=== PATIENT | female | born 1970 | race Caucasian/White ===

== ENCOUNTER 2019-07-31 19:29 | Emergency (ER) | payer BC, OTHER ==
[2019-07-31] MEDS ORDERED: Ketorolac 30 MG/ML SDV IVPUSH ONE (19:55)
[2019-07-31] MEDS ORDERED: Sodium Chloride 0.9% 10 ML Syringe FLUSH PRN (19:55)
[2019-07-31] MEDS ORDERED: Ondansetron 4 MG/2 ML SDV IVPUSH ONE (19:55)
[2019-07-31] MEDS ORDERED: Morphine 2 MG/ML Syringe IVPUSH ONE (19:55)
[2019-07-31] MEDS ORDERED: Sodium Chloride 0.9% 1,000 ML IV ONE (19:55)
[2019-07-31] MEDS ORDERED: Sodium Chloride 0.9% 2.5 ML Syringe FLUSH PRN (19:55)
--- NOTE | 2019-07-31 19:57 | EDM.PDOC ---
ED HPI GENERAL MEDICAL PROBLEM - General Chief Complaint: Flank Pain Stated Complaint: ABDOMINAL PAIN/BLADDER PAIN Time Seen by Provider: 07/31/19 19:50 - History of Present Illness INITIAL COMMENTS - FREE TEXT/NARRATIVE: HISTORY AND PHYSICAL: History of present illness: The patient is a 49-year-old female with a history of 1 kidney stone in the past that she passed spontaneously while she was living in [place] and has not followed up with a urologist and presents with onset of dysuria frequency and urgency of urination without hematuria followed by right flank pain which is radiating to her right lower abdomen. The patient says she had a normal day today without any systemic issues and these symptoms suddenly started about an hour or 2 ago. She is had nausea and vomiting and she cannot take anything for pain at home. She says that this feels very similar to her prior kidney stone. The patient denies as her partner has a vasectomy and she has no other abdominal history. The patient says the pain is deep and uncomfortable and is radiating. Review of systems: As per history of present illness and below otherwise all systems reviewed and negative. Past medical history: As per history of present illness and as reviewed below otherwise noncontributory. Surgical history: As per history of present illness and as reviewed below otherwise noncontributory. Social history: No reported history of drug or alcohol abuse. Family history: As per history of present illness and as reviewed below otherwise noncontributory. Physical exam: Well-developed well-nourished overweight female who is nontoxic but looks uncomfortable in the room. Eitel signs are noted by me HEENT: Atraumatic, normocephalic, pupils reactive, negative for conjunctival pallor or scleral icterus, mucous membranes moist, throat clear, neck supple, nontender, trachea midline. Lungs: Clear to auscultation, breath sounds equal bilaterally, chest nontender. Heart: S1S2, regular, negative for clicks, rubs, or JVD. Abdomen: Soft, nondistended, nontender. Negative for masses or hepatosplenomegaly. Negative for costovertebral tenderness. I cannot specifically reproduce the pain on palpation of her abdomen or pelvis. Pelvis: Stable nontender. Genitourinary: Deferred. Rectal: Deferred. Extremities: Atraumatic, negative for cords or calf pain. Neurovascular unremarkable. Neuro: Awake, alert, oriented. Cranial nerves II through XII unremarkable. Cerebellum unremarkable. Motor and sensory unremarkable throughout. Exam nonfocal. Diagnostics: UA with reflex CBC CMP CT scan of the abdomen and pelvis urine culture Therapeutics: IV fluids Toradol Zofran morphine flomax urine strainers Dilaudid SHe is feeling improved and says the pain does come and go and she is aware of all of her testing results. I will give her prescriptions for home and expedited follow-up with Dr. Bach the patient was also made aware of her incidental gallstones Impression: Right ureterolithiasis Definitive disposition and diagnosis as appropriate pending reevaluation and review of above. R Flank Pain Score (Numeric/FACES): 10 - Related Data Allergies Allergy/AdvReac Type Severity Reaction Status Date / Time No Known Allergies Allergy Verified 07/31/19 19:42 Home Meds: Home Meds . [No Known Home Meds] 07/31/19 [History] Past Medical History Genitourinary History: Reports: Renal Calculus - Infectious Disease History Infectious Disease History: Reports: Chicken Pox - Past Surgical History GI Surgical History: Reports: Appendectomy Social & Family History - Family History Family Medical History: Noncontributory - Tobacco Use Smoking Status *Q: Current Every Day Smoker Years of Tobacco use: 20 Packs/Tins Daily: 1 Second Hand Smoke Exposure: No - Caffeine Use Caffeine Use: Reports: None - Recreational Drug Use Recreational Drug Use: No ED ROS GENERAL - Review of Systems Review Of Systems: Comprehensive ROS is negative, except as noted in HPI. ED EXAM, GENERAL - Physical Exam Exam: See Below (See dictation) Course - Vital Signs Last Recorded V/S: Last Vital Signs Temp 35.3 C 07/31/19 19:43 Pulse 88 07/31/19 19:43 Resp 16 07/31/19 19:43 BP 137/88 07/31/19 19:43 Pulse Ox 97 07/31/19 19:43 - Orders/Labs/Meds Orders: Active Orders 24 hr Category Date Time Status CULTURE URINE [RM] Stat Lab 07/31/19 21:25 Ordered Sodium Chloride 0.9% [Saline Flush] Med 07/31/19 19:55 Active 10 ml FLUSH ASDIRECTED PRN Sodium Chloride 0.9% [Saline Flush] Med 07/31/19 19:55 Active 2.5 ml FLUSH ASDIRECTED PRN Saline Lock Insert [OM.PC] Stat Oth 07/31/19 19:54 Ordered Medication Orders Sodium Chloride (Saline Flush) 10 ml FLUSH ASDIRECTED PRN PRN Reason: Keep Vein Open Sodium Chloride (Saline Flush) 2.5 ml FLUSH ASDIRECTED PRN PRN Reason: Keep Vein Open Labs: Laboratory Tests 07/31/19 07/31/19 07/31/19 Range/Units 19:48 19:48 20:47 WBC 13.00 H (4.0-11.0) K/uL RBC 4.44 (4.30-5.90) M/uL Hgb 13.5 (12.0-16.0) g/dL Hct 40.1 (36.0-46.0) % MCV 90.3 (80.0-98.0) fL MCH 30.4 (27.0-32.0) pg MCHC 33.7 (31.0-37.0) g/dL RDW Std Deviation 42.1 (28.0-62.0) fl RDW Coeff of Kayla 13 (11.0-15.0) % Plt Count 431 H (150-400) K/uL MPV 8.40 (7.40-12.00) fL Neut % (Auto) 55.2 (48.0-80.0) % Lymph % (Auto) 30.8 (16.0-40.0) % Lander % (Auto) 7.8 (0.0-15.0) % Eos % (Auto) 5.7 (0.0-7.0) % Baso % (Auto) 0.5 (0.0-1.5) % Neut # (Auto) 7.2 H (1.4-5.7) K/uL Lymph # (Auto) 4.0 H (0.6-2.4) K/uL Lander # (Auto) 1.0 H (0.0-0.8) K/uL Eos # (Auto) 0.7 (0.0-0.7) K/uL Baso # (Auto) 0.1 (0.0-0.1) K/uL Nucleated RBC % 0.0 /100WBC Nucleated RBCs # 0 K/uL Sodium 142 (136-145) mmol/L Potassium 3.6 (3.5-5.1) mmol/L Chloride 105 (98-107) mmol/L Carbon Dioxide 29.8 (21.0-32.0) mmol/L BUN 29 H (7.0-18.0) mg/dL Creatinine 1.2 H (0.6-1.0) mg/dL Est Cr Clr Drug Dosing 59.92 mL/min Estimated GFR (MDRD) 47.9 ml/min Glucose 110 H (74-106) mg/dL Calcium 9.2 (8.5-10.1) mg/dL Total Bilirubin 0.1 L (0.2-1.0) mg/dL AST 17 (15-37) IU/L ALT 40 (14-63) IU/L Alkaline Phosphatase 112 (46-116) U/L Total Protein 7.7 (6.4-8.2) g/dL Albumin 3.9 (3.4-5.0) g/dL Globulin 3.8 (2.6-4.0) g/dL Albumin/Globulin Ratio 1.0 (0.9-1.6) Urine Color YELLOW Urine Appearance SLT CLOUDY Urine pH 5.5 (5.0-8.0) Ur Specific [place] >= 1.030 (1.001-1.035) Urine Protein 30 H (NEGATIVE) mg/dL Urine Glucose (UA) NEGATIVE (NEGATIVE) mg/dL Urine Ketones NEGATIVE (NEGATIVE) mg/dL Urine Occult Blood LARGE H (NEGATIVE) Urine Nitrite NEGATIVE (NEGATIVE) Urine Bilirubin SMALL H (NEGATIVE) Urine Ictotest NEGATIVE Urine Urobilinogen 0.2 (<2.0) EU/dL Ur Leukocyte Esterase NEGATIVE (NEGATIVE) Urine RBC 50-60 (0-2/HPF) Urine WBC 0-4 (0-5/HPF) Ur Epithelial Cells MODERATE (NONE-FEW) Urine Bacteria 1+ H (NEGATIVE) Urinalysis Comment Meds: Medications Generic Name Dose Route Start Last Admin Trade Name Freq PRN Reason Stop Dose Admin Sodium Chloride 10 ml 07/31/19 19:55 Saline Flush FLUSH ASDIRECTED PRN Keep Vein Open Sodium Chloride 2.5 ml 07/31/19 19:55 Saline Flush FLUSH ASDIRECTED PRN Keep Vein Open Discontinued Medications Generic Name Dose Route Start Last Admin Trade Name Freq PRN Reason Stop Dose Admin Hydromorphone HCl 1 mg 07/31/19 21:29 Dilaudid IVPUSH 07/31/19 21:30 ONETIME ONE Sodium Chloride 1,000 mls @ 999 mls/hr 07/31/19 19:55 07/31/19 20:00 Normal Saline IV 07/31/19 20:55 999 mls/hr STAT ONE Administration Ketorolac Tromethamine 30 mg 07/31/19 19:55 07/31/19 20:00 Toradol IVPUSH 07/31/19 19:56 30 mg ONETIME ONE Administration Morphine Sulfate 4 mg 07/31/19 19:55 07/31/19 20:00 Morphine IVPUSH 07/31/19 19:56 4 mg ONETIME ONE Administration Ondansetron HCl 4 mg 07/31/19 19:55 07/31/19 20:00 Zofran IVPUSH 07/31/19 19:56 4 mg ONETIME ONE Administration Tamsulosin HCl 0.4 mg 07/31/19 21:26 Flomax PO 07/31/19 21:27 ONETIME ONE Departure - Departure Time of Disposition: 21:32 Disposition: Home, Self-Care 01 Condition: Good Clinical Impression: Ureterolithiasis - Discharge Information Referrals: PCP,None [Primary Care Provider] - Forms: ED Department Discharge Additional Instructions: The following information is given to patients seen in the emergency department who are being discharged to home. This information is to outline your options for follow-up care. We provide all patients seen in our emergency department with a follow-up referral. The need for follow-up, as well as the timing and circumstances, are variable depending upon the specifics of your emergency department visit. If you don't have a primary care physician on staff, we will provide you with a referral. We always advise you to contact your personal physician following an emergency department visit to inform them of the circumstance of the visit and for follow-up with them and/or the need for any referrals to a consulting specialist. The emergency department will also refer you to a specialist when appropriate. This referral assures that you have the opportunity for followup care with a specialist. All of these measure are taken in an effort to provide you with optimal care, which includes your followup. Under all circumstances we always encourage you to contact your private physician who remains a resource for coordinating your care. When calling for followup care, please make the office aware that this follow-up is from your recent emergency room visit. If for any reason you are refused follow-up, please contact the [facility] emergency department at and ask to speak to the emergency department charge nurse. [facility] [address] [place] [address] Push hydration and try to reduce caffeine intake. Please strain your urine looking for the stone as we discussed and call in the morning and schedule a follow-up with Dr. Walker our urologist. Please use medications as prescribed and return to ER as needed and as discussed Sepsis Event Note - Evaluation Sepsis Screening Result: No Definite Risk - Focused Exam Vital Signs: Vital Signs Temp Pulse Resp BP Pulse Ox 07/31/19 19:43 35.3 C 88 16 137/88 97 Date Exam was Performed: 07/31/19 Time Exam was Performed: 21:31 - My Orders Last 24 Hours: My Active Orders 07/31/19 19:54 Saline Lock Insert [OM.PC] Stat 07/31/19 19:55 Sodium Chloride 0.9% [Saline Flush] 10 ml FLUSH ASDIRECTED PRN Sodium Chloride 0.9% [Saline Flush] 2.5 ml FLUSH ASDIRECTED PRN 07/31/19 21:25 CULTURE URINE [RM] Stat - Assessment/Plan Last 24 Hours: My Active Orders 07/31/19 19:54 Saline Lock Insert [OM.PC] Stat 07/31/19 19:55 Sodium Chloride 0.9% [Saline Flush] 10 ml FLUSH ASDIRECTED PRN Sodium Chloride 0.9% [Saline Flush] 2.5 ml FLUSH ASDIRECTED PRN 07/31/19 21:25 CULTURE URINE [RM] Stat
[2019-07-31 20:27] LABS: CARBON DIOXIDE,CO2 29.8 mmol/L (21.0-32.0); POTASSIUM,K 3.6 mmol/L (3.5-5.1)
--- NOTE | 2019-07-31 20:37 | CT ---
CT abdomen and pelvis Technique: Multiple axial sections were obtained from above the dome of the diaphragm inferiorly to the pubic symphysis. Intravenous contrast and oral contrast not utilized. Study performed as a ureteral stone protocol. Comparison: Prior CT exam of 05/07/10. Findings: Visualized lung bases show nothing acute. Noncontrast appearance of the liver shows no focal parenchymal abnormality. Spleen appears within normal limits. Calcified gallstones are seen within the gallbladder. Adrenal glands show no nodule. Pancreas is within normal limits. Aorta shows minimal atherosclerotic calcification without aneurysm. No retroperitoneal adenopathy or mesenteric abnormalities are seen. No pelvic mass or adenopathy is seen. No free fluid or inflammatory change is seen. Right ureter is dilated. This finding is caused by an obstructing distal right ureteral stone measuring approximately 6 mm. This is located slightly proximal to the UVJ. No other abnormal calcifications are seen along the course of the ureters. Kidneys show no abnormal calcifications. Bone window settings were reviewed which shows slight degenerative change within the spine primarily within the apophyseal joints of the lower lumbar spine. No acute osseous finding is seen. Impression: 1. Obstructing 6 mm calculus within the distal right ureter. This is located slightly proximal to the UVJ. 2. Calcified gallstones within the gallbladder. 3. Other findings believed to be incidental and not acute as described above. Diagnostic code #3 Study was dictated in [place] Standard Time
[2019-07-31] MEDS ORDERED: Tamsulosin 0.4 MG Cap.ER PO ONE (21:26)
[2019-07-31] MEDS ORDERED: HYDROmorphone 1 MG/ML Syringe IVPUSH ONE (21:29)
== END 2019-07-31 21:50 | disposition home or self-care (01) ==
LOC: MW.ED 19:29
DX: N20.1 Calculus of ureter (principal); F17.210 Nicotine dependence, cigarettes, uncomplicated; Z87.442 Personal history of urinary calculi
CPT/HCPCS: 74176; 80053; 81001; 85025; 87086; 96361; 96374; 96375; 99284; A9270; J1170; J1885; J2270; J2405; J7030

== ENCOUNTER 2019-08-25 12:34 | Day surgery (SDC) | payer OTHER ==
[~2019-08-25 12:34] MED LIST: Lactated Ringers 1,000 ML IV SCH; Lidocaine 2% 5 ML SDV ONE; Midazolam 1 MG/ML 2 ML SDV ONE; Propofol 200 MG/20 ML SDV ONE; Sodium Chloride 0.9% 10 ML SDV IV PRN; Sodium Chloride 0.9% 10 ML Syringe FLUSH PRN; Sodium Chloride 0.9% 2.5 ML Syringe FLUSH PRN; ceFAZolin 2 GM in Premix Bag 1 BAG IV ONE; fentaNYL 100 MCG/2 ML SDV ONE
[2019-08-25] MEDS ORDERED: Iopamidol 200-M 10 ML vial ITHECAL ONE (13:04)
--- NOTE | 2019-08-25 13:34 | PCM.PREANE ---
Preanesthetic Assessment - Anesthesia/Transfusion/Family Hx Anesthesia History: Prior Anesthesia Without Reaction Family History of Anesthesia Reaction: No Transfusion History: No Prior Transfusion(s) - Review of Systems General: No Symptoms Pulmonary: No Symptoms Cardiovascular: No Symptoms Gastrointestinal: Abdominal Pain Neurological: No Symptoms Other: Reports: None - Physical Assessment NPO Status Date: 08/24/19 Vital Signs: Last Vital Signs Temp 97.0 F 08/25/19 13:00 Pulse 81 08/25/19 13:00 Resp 16 08/25/19 13:00 BP 119/85 08/25/19 13:00 Pulse Ox 97 08/25/19 13:00 Height: 5 ft 9 in Weight: 101.151 kg ASA Class: 2 Mental Status: Alert & Oriented x3 Airway Class: Mallampati = 1 Dentition: Reports: Normal Dentition ROM/Head Extension: Full Lungs: Clear to Auscultation, Normal Respiratory Effort Cardiovascular: Regular Rate, Regular Rhythm - Lab Values: Laboratory Last Values Urine HCG, Qual NEGATIVE (NEGATIVE) 08/25/19 12:52 - Allergies Allergies/Adverse Reactions: Allergies Allergy/AdvReac Type Severity Reaction Status Date / Time No Known Allergies Allergy Verified 08/22/19 11:42 - Blood Blood Available: No - Anesthesia Plan Pre-Op Medication Ordered: None - Acknowledgements Anesthesia Type Planned: General Anesthesia Pt an Appropriate Candidate for the Planned Anesthesia: Yes Alternatives and Risks of Anesthesia Discussed w Pt/Guardian: Yes Pt/Guardian Understands and Agrees with Anesthesia Plan: Yes Additional Comments: PMH: smoker PLAN: get PreAnesthesia Questionnaire HEENT History: Reports: None Cardiovascular History: Reports: None Respiratory History: Reports: None Gastrointestinal History: Reports: None Genitourinary History: Reports: Renal Calculus 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: Musculoskeletal History: Reports: Fracture Other Musculoskeletal History: hx fx collarbone, and left foot Neurological History: Reports: None Psychiatric History: Reports: None Endocrine/Metabolic History: Reports: Obesity/BMI 30+ Hematologic History: Reports: None Immunologic History: Reports: None Oncologic (Cancer) History: Reports: None Dermatologic History: Reports: None - Infectious Disease History Infectious Disease History: Reports: Chicken Pox - Past Surgical History Head Surgeries/Procedures: Reports: None HEENT Surgical History: Reports: None Cardiovascular Surgical History: Reports: None Respiratory Surgical History: Reports: None GI Surgical History: Reports: Appendectomy Female Surgical History: Reports: Breast Implant Endocrine Surgical History: Reports: None Neurological Surgical History: Reports: None Musculoskeletal Surgical History: Reports: Other (See Below) Other Musculoskeletal Surgeries/Procedures:: surgery for fx left foot, hardware removal Oncologic Surgical History: Reports: None Dermatological Surgical History: Reports: None - SUBSTANCE USE Smoking Status *Q: Current Every Day Smoker Tobacco Use Within Last Twelve Months: Cigarettes - HOME MEDS Home Medications: Home Meds Hydrocodone/Acetaminophen [Hydrocodon-Acetaminophen 5-325] 1 tab PO ASDIRECTED PRN 08/22/19 [History] - CURRENT (IN HOUSE) MEDS Current Meds: Current Medications Lactated Ringer's (Ringers, Lactated) 1,000 mls @ 100 mls/hr IV ASDIRECTED SAURABH Last Admin: 08/25/19 13:23 Dose: 100 mls/hr Sodium Chloride (Saline Flush) 10 ml FLUSH ASDIRECTED PRN PRN Reason: Keep Vein Open Sodium Chloride (Saline Flush) 2.5 ml FLUSH ASDIRECTED PRN PRN Reason: Keep Vein Open Sodium Chloride (Normal Saline) 10 ml IV ASDIRECTED PRN PRN Reason: IV Use Discontinued Medications Fentanyl (Sublimaze) Confirm Administered Dose 100 mcg .ROUTE .STK-MED ONE Stop: 08/25/19 12:28 Cefazolin Sodium/Dextrose 2 gm (/ Premix) 50 mls @ 100 mls/hr IV ONCALL ONE Stop: 08/25/19 00:30 Iopamidol (Isovue-M 200) Confirm Administered Dose 10 ml ITHECAL .STK-MED ONE Stop: 08/25/19 13:05 Lidocaine (Xylocaine-Mpf 2%) Confirm Administered Dose 5 ml .ROUTE .STK-MED ONE Stop: 08/25/19 12:27 Midazolam HCl (Versed 1 Mg/Ml) Confirm Administered Dose 2 mg .ROUTE .STK-MED ONE Stop: 08/25/19 12:28 Propofol (Diprivan 20 Ml) Confirm Administered Dose 200 mg .ROUTE .STK-MED ONE Stop: 08/25/19 12:27
[2019-08-25] MEDS ORDERED: Rocuronium 100 MG/10 ML Syringe ONE (13:53)
[2019-08-25] MEDS ORDERED: ceFAZolin/Dextrose,Iso-Osmotic 2 GM/50 ML Duplex Bag IV ONE (14:25)
[2019-08-25] MEDS ORDERED: Dexamethasone 4 MG/ML 5 ML MDV ONE (14:32)
[2019-08-25] MEDS ORDERED: Ondansetron 4 MG/2 ML SDV ONE (14:32)
[2019-08-25] MEDS ORDERED: Sugammadex Sodium 200 MG/2 ML VIAL ONE (14:39)
[2019-08-25] MEDS ORDERED: Ketorolac 30 MG/ML SDV ONE (14:42)
[2019-08-25] MEDS ORDERED: Acetaminophen/HYDROcodone 325-5 MG Tab PO PRN (14:53)
--- NOTE | 2019-08-25 15:42 | PCM.POSTAN ---
POST ANESTHESIA ASSESSMENT - MENTAL STATUS Mental Status: Alert, Oriented - VITAL SIGNS Vital Signs: Last Vital Signs Temp 36.7 C 08/25/19 14:57 Pulse 73 08/25/19 15:18 Resp 12 08/25/19 15:18 BP 96/57 L 08/25/19 15:18 Pulse Ox 98 08/25/19 15:18 - RESPIRATORY Respiratory Status: Respiratory Rate WNL, Airway Patent, O2 Saturation Stable - CARDIOVASCULAR CV Status: Pulse Rate WNL, Blood Pressure Stable - GASTROINTESTINAL GI Status: No Symptoms - POST OP HYDRATION Hydration Status: Adequate & Stable
--- NOTE | 2019-08-25 16:19 | PCM48HPAN ---
Post Anesthesia Note - EVALUATION WITHIN 48HRS OF ANESTHETIC Vital Signs in Normal Range: Yes Patient Participated in Evaluation: Yes Respiratory Function Stable: Yes Airway Patent: Yes Cardiovascular Function Stable: Yes Hydration Status Stable: Yes Pain Control Satisfactory: Yes Nausea and Vomiting Control Satisfactory: Yes Mental Status Recovered: Yes Vital Signs: Last Vital Signs Temp 36.7 C 08/25/19 14:57 Pulse 73 08/25/19 15:18 Resp 12 08/25/19 15:18 BP 96/57 L 08/25/19 15:18 Pulse Ox 98 08/25/19 15:18 - COMMENTS/OBSERVATIONS Free Text/Narrative:: Waiting for her son to arrive.
--- NOTE | 2019-08-25 21:37 | OR ---
SURGEON: Tello Walker M.D. DATE OF PROCEDURE: 08/25/2019 PREOPERATIVE DIAGNOSIS: Right lower ureteral stone. POSTOPERATIVE DIAGNOSIS: Right lower ureteral stone. PROCEDURE: Right ureteroscopy and stone removal. DESCRIPTION OF PROCEDURE: The patient was given general anesthesia. She was in dorsal lithotomy position, prepped and draped in sterile drapes. Cystourethroscopy was done that was normal. A guidewire was advanced in the right ureter all the up into the renal pelvis. The lower ureter was then dilated using the UroMax II balloon dilator to approximately 15-[place]. With the guidewire still in place, the rigid ureteroscope was advanced in the ureter. The stone was grasped and removed. The guidewire was taken out after the ureteroscope was advanced all the way up into the right renal pelvis to make sure there are no additional stones in the ureter. With that done, the bladder was emptied and the patient was moved to recovery room in good condition. LOGAN / ISAC /[id number]
== END 2019-08-25 16:30 | disposition home or self-care (01) ==
LOC: MW.SDS 12:34
PROVIDERS: ATTEND Urology
DX: N20.1 Calculus of ureter (principal); E66.9 Obesity, unspecified; F17.210 Nicotine dependence, cigarettes, uncomplicated; Z87.442 Personal history of urinary calculi; Z79.899 Other long term (current) drug therapy; Z68.32 Body mass index [BMI] 32.0-32.9, adult
CPT/HCPCS: 52352; 81025; A9270; C1769; J0690; J1100; J1885; J2001; J2250; J2405; J2704; J3010; J3490; J7120; Q9966; 88300

== ENCOUNTER 2023-05-16 09:29 | Emergency (ER) | payer BC, OTHER ==
[2023-05-16] MEDS ORDERED: Ondansetron 4 MG/2 ML SDV IVPUSH ONE (10:16)
[2023-05-16] MEDS ORDERED: Sodium Chloride 0.9% 1,000 ML IV ONE (10:16)
[2023-05-16] MEDS ORDERED: Morphine 4 MG/ML Syringe IVPUSH ONE (10:16)
[2023-05-16 10:23] LABS: BASOPHILS ABSOLUTE AUTO 0.07 K/uL (0.00-0.20); BASOPHILS PERCENT AUTO 0.7 % (0.0-1.0); EOSINOPHILS ABSOLUTE AUTO 0.32 K/uL (0.00-0.45); EOSINOPHILS PERCENT AUTO 3.2 % (0.0-6.0); HEMATOCRIT 42.7 % (37.0-47.0); HEMOGLOBIN 14.8 g/dL (12.0-16.0); IMMATURE GRAN ABSOLUTE AUTO 0.03 K/uL (0.00-0.05); IMMATURE GRAN PERCENT AUTO 0.3 % (0.0-0.4); LYMPHOCYTES ABSOLUTE AUTO 2.35 K/uL (1.00-4.80); LYMPHOCYTES PERCENT AUTO 23.8 % (24.0-44.0); MEAN CORPUSCULAR HGB CONC 34.7 g/dL (32.0-36.0); MEAN CORPUSCULAR VOLUME 89.5 fL (83.0-99.0); MEAN PLATELET VOLUME 8.1 fL (9.4-12.3); MONOCYTES ABSOLUTE AUTO 0.61 K/uL (0.00-0.80); MONOCYTES PERCENT AUTO 6.2 % (0.0-8.0); NEUTROPHILS ABSOLUTE AUTO 6.48 K/uL (1.80-7.70); NEUTROPHILS PERCENT AUTO 65.8 % (41.0-71.0); PLATELET COUNT,PLT 395 K/uL (150-400); RED BLOOD CELL COUNT 4.77 M/uL (4.10-5.30); WHITE BLOOD CELL COUNT,WBC 9.86 K/uL (3.9-11.3)
[2023-05-16 10:52] LABS: A/G RATIO 0.9 (0.9-1.6); ALBUMIN 3.8 g/dL (3.4-5.0); BILIRUBIN TOTAL 0.3 mg/dL (0.2-1.0); CARBON DIOXIDE,CO2 27.5 mmol/L (21.0-32.0); CREATININE 0.9 mg/dL (0.6-1.0); EST CRCL DRUG DOSING (CG) 76.42 mL/min; POTASSIUM,K 4.4 mmol/L (3.5-5.1); PROTEIN TOTAL,TP 7.8 g/dL (6.4-8.2)
[2023-05-16 11:44] LABS: APPEARANCE,URINE SLT CLOUDY; BILIRUBIN,URINE NEGATIVE (NEGATIVE); COLOR,URINE YELLOW; GLUCOSE,URINE NEGATIVE (NEGATIVE); KETONES,URINE NEGATIVE (NEGATIVE); LEUKOCYTE ESTERASE,URINE TRACE (NEGATIVE); NITRITE,URINE NEGATIVE (NEGATIVE); OCCULT BLOOD,URINE NEGATIVE (NEGATIVE); PROTEIN,URINE NEGATIVE (NEGATIVE); UROBILINOGEN,URINE 0.2 EU/dL (<2.0)
[2023-05-16 11:54] LABS: BACTERIA,URINE 1+ (NEGATIVE); EPITHELIAL CELLS,URINE FEW (NONE-FEW); RBC,URINE NONE SEEN (0-2/HPF); WBC,URINE 0-3 (0-5/HPF)
[2023-05-16 11:55] LABS: MUCUS,URINE LIGHT (NONE-MOD)
== END 2023-05-16 12:11 | disposition home or self-care (01) ==
LOC: MW.ED 09:29
DX: N39.0 Urinary tract infection, site not specified (principal); F17.210 Nicotine dependence, cigarettes, uncomplicated; E66.9 Obesity, unspecified; Z68.32 Body mass index [BMI] 32.0-32.9, adult
CPT/HCPCS: 36415; 74176; 80053; 81001; 83690; 85025; 87086; 96374; 96375; 99284; J2270; J2405; J7030; 87088; 87186

== ENCOUNTER 2023-08-30 08:56 | Day surgery (SDC) | payer BC | END 2023-08-31 | LOC: CANPRESDC → MW.SDS 08:56 → MW.MS 08-31 11:02 → MW.SDS 08-31 11:02 | PROVIDERS: ATTEND Obstetrics & Gynecology | DX: N92.0 Excessive and frequent menstruation with regular cycle (principal); D25.9 Leiomyoma of uterus, unspecified; F17.210 Nicotine dependence, cigarettes, uncomplicated; Z79.899 Other long term (current) drug therapy; Z15.09 Genetic susceptibility to other malignant neoplasm; Z01.812 Encounter for preprocedural laboratory examination ==

== ENCOUNTER 2025-05-10 07:55 | Day surgery (SDC) | payer BC ==
[~2025-05-10 07:55] MED LIST changes: -Lactated Ringers 1,000 ML IV SCH; -Lidocaine 2% 5 ML SDV ONE; -Midazolam 1 MG/ML 2 ML SDV ONE; -Propofol 200 MG/20 ML SDV ONE; -Sodium Chloride 0.9% 10 ML SDV IV PRN; -ceFAZolin 2 GM in Premix Bag 1 BAG IV ONE; -fentaNYL 100 MCG/2 ML SDV ONE
[2025-05-10] MEDS: Lactated Ringers 1,000 ML IV SCH (08:25)
[2025-05-10] MEDS ORDERED: propofoL 500 MG/50 ML 50 ML ONE (08:36)
[2025-05-10] MEDS ORDERED: Propofol 200 MG/20 ML SDV ONE (09:15)
== END 2025-05-10 10:15 | disposition home or self-care (01) ==
LOC: MW.SDS 07:55
PROVIDERS: ATTEND Surgery
DX: Z12.11 Encounter for screening for malignant neoplasm of colon (principal); K63.5 Polyp of colon; I10 Essential (primary) hypertension; E66.9 Obesity, unspecified; F17.210 Nicotine dependence, cigarettes, uncomplicated; Z79.899 Other long term (current) drug therapy; Z68.35 Body mass index [BMI] 35.0-35.9, adult; Z15.09 Genetic susceptibility to other malignant neoplasm; Z80.0 Family history of malignant neoplasm of digestive organs; Z86.0100 Personal history of colon polyps, unspecified
CPT/HCPCS: 45380; J1596; J2704; J7120; 00811